=== PATIENT | female | born 2000 | race Two or more races ===

== ENCOUNTER 2021-11-16 12:48 | Emergency (ER) | payer MEDICAID, OTHER ==
[~2021-11-16] VITALS: Ht 165.1 cm; Wt 79.4 kg
[2021-11-16 14:48] VITALS: BP 186/94
[2021-11-16] MEDS ORDERED: LIDO2SOL23 MT (15:35)
[2021-11-16] MEDS ORDERED: AZIT500T66 PO (15:35)
== END 2021-11-16 15:50 | disposition home or self-care (01) ==
LOC: ER 12:48
DX: J03.90 Acute tonsillitis, unspecified (principal); J06.9 Acute upper respiratory infection, unspecified; Z86.2 Personal history of diseases of the blood and blood-forming organs and certain disorders involving the immune mechanism
CPT/HCPCS: 71046

== ENCOUNTER 2024-12-29 05:42 | Inpatient (IN) | payer MEDICAID ==
[~2024-12-29] VITALS: Ht 165.1 cm; Wt 83.5 kg
[2024-12-29] VITALS (10 sets, daily range): BP systolic 99–131; BP diastolic 55–83; PULSE 86–110; RESP 16–27; TEMP 97.8–98.2; O2SAT 96–99
[~2024-12-29 05:42] MED LIST: AZIT500T66 PO; LIDO2SOL26 MT
--- NOTE | 2024-12-29 06:14 | ED.PDOC ---
HPI Allergic reaction HPI Comments 24 year old female presents to the ED with a chief complaint of allergic reaction onset today around 04:30. Patient states she experienced a reaction 2 days ago, hives on scalp, neck and back, was seen at urgent care, was given medication that improved her symptoms. Patient woke up today noticed hives were back, lips and eyes were swollen as well as shortness of breath. Patient states she has not been exposed to new foods. PMHx anxiety, depression, anemia. Denies headache, dizziness, chest pain, blurry vision, nausea, vomiting, diarrhea, abdominal pain, fever, chills. No other symptoms or modifying factors present at this time. Chief Complaint: Allergic Reaction Time Seen by MD: 06:08 Primary Care Provider: [facility] Reviewed Notes: Medications, Allergies Allergies: Coded Allergies: Bee Venom (Verified Allergy, Unknown, 12/29/24) Benzoyl Peroxide (Verified Allergy, Unknown, 12/29/24) Honey (Verified Allergy, Unknown, 12/29/24) Home Meds Active Scripts Lidocaine HCl (Mouth-Throat) (Lidocaine HCl Viscous) 2 % Ashly, 2 % MT TID, #100 ML Prov:VIRAJ DAHL 11/16/21 Azithromycin (Azithromycin) 500 Mg Tab, 500 MG PO DAILY for 5 Days, #5 TAB Prov:VIRAJ DAHL 11/16/21 Information Source: Patient Mode of Arrival: Ambulatory Severity: Moderate Rash: Moderate SOB: Moderate Difficulty swallowing: None Pruritus: None Timing: Hours Duration: Since onset Prehospital treatment: None Location: Back, Eyes, Head, Lips, Neck Exposed to: Unknown Developed: Facial Swelling, Rash, Shortness of Breath Modyifying Factors: None Associated Sign and Symptoms: None Past Medical History PAST MEDICAL HISTORY: Anemia, Anxiety, Depression Surgical History: Denies all surgeries STATISTICIAN History: Denies all STATISTICIAN Hx Family History Family History: Reviewed,noncontributory to illness Social History Smoker: Non-Smoker Alcohol: Denies ETOH Use Drugs: Denies Drug Use Lives In: Home Constitutional: denies: chills, diaphoresis, fatigue, fever, malaise, sweats, weakness, others EENTM: denies: blurred vision, double vision, ear bleeding, ear discharge, ear drainage, ear pain, ear ringing, eye pain, eye redness, hearing loss, mouth pain, mouth swelling, nasal discharge, nose bleeding, nose congestion, nose pain, photophobia, tearing, throat pain, throat swelling, voice changes, others Respiratory: reports: shortness of breath; denies: cough, hemoptysis, orthopnea, SOB at rest, SOB with excertion, stridor, wheezing, others Cardiovascular: denies: chest pain, dizzy spells, diaphoresis, Dyspnea on exertion, edema, irregular heart beat, left arm pain, lightheadedness, palpitations, PND, syncope, others Gastrointestinal: denies: abdomen distended, abdominal pain, blood streaked bowels, constipated, diarrhea, dysphagia, difficulty swallowing, hematemesis, melena, nausea, poor appetite, poor fluid intake, rectal bleeding, rectal pain, vomiting, others Genitourinary: denies: abnormal vagina bleeding, burning, dyspareunia, dysuria, flank pain, frequency, hematuria, incontinence, pain, , vagina discharge, urgency, others Neurological: denies: dizziness, fainting, headache, left sided numbness, left sided weakness, numbness, paresthesia, pre-existing deficit, right sided numbness, right sided weakness, seizure, speech problems, tingling, tremors, weakness, others Musculoskeletal: denies: back pain, gout, joint pain, joint swelling, muscle pain, muscle stiffness, neck pain, others Integumetry: reports: rash; denies: bruises, change in color, change in hair/nails, dryness, laceration, lesions, lumps, wounds, others Allergic/Immunocompromised: denies: Difficulty Healing, Frequent Infections, Hives, Itching, others Hematologic/Lymphatic: denies: anemia, blood clots, easy bleeding, easy bruising, swollen glands, others Endocrine: denies: excessive hunger, excessive sweating, excessive thirst, excessive urination, flushing, intolerance to cold, intolerance to heat, unexplained weight gain, unexplained weight loss, others Psychiatric: denies: anxiety, bipolar disorder, depression, hopeless, panic disorder, schizophrenia, sleepless, suicidal, others All Other Systems: Reviewed and Negative Physical Exam General Appearance: No Apparent Distress, Normal HEENT: Normal ENT Inspection, Pharynx Normal, TMs Normal Neck: Full Range of Motion, Non-Tender, Normal, Normal Inspection Respiratory: Chest Non-Tender, Lungs Clear, No Accessory Muscle Use, No Respiratory Distress, Normal Breath Sounds Cardiovascular: No Edema, No JVD, No Murmur, No Gallop, Normal Peripheral Pulses, Regular Rate/Rhythm Breast Exam: Deferred Gastrointestinal: No Organomegaly, Non Tender, No Pulsatile Mass, Normal Bowel Sounds, Soft Genitalia: Deferred Pelvic: Deferred Rectal: Deferred Extremities: No calf tenderness, Normal capillary refill, Normal inspection, Normal range of motion, Non-tender, No pedal edema Musculoskeletal : Apperance: Normal Neurologic: Alert, baggage and mail agent II-XII nml as Tested, No Motor Deficits, Normal Affect, Normal Mood, No Sensory Deficits Cerebellar Function: Normal Reflexes: Normal Skin: Dry, Normal Color, Warm Lymphatic: No Adenopathy Was a procedure done? Was a procedure done?: No Differential diagnosis (all) Differential Diagnosis: Anaphylaxis, Angioedema, Drug Reaction, Urticaria X-Ray, Labs, Meds, VS Vital Signs Date Time Temp Pulse Resp B/P (MAP) Pulse Ox O2 Delivery O2 Flow Rate FiO2 12/29/24 06:30 97.7 86 27 118/62 (80) 99 97.7 12/29/24 06:20 86 27 99 Room Air* 0 21 12/29/24 06:08 94 18 98 Room Air* 0 21 12/29/24 06:08 98.0 94 18 133/91 (105) 98 98.0 12/29/24 05:58 98.0 94 18 133/91 (105) 98 98.0 12/29/24 05:58 18 98 Room Air* 0 21 Lab Test 12/29/24 08:38 Range/Units White Blood Count 15.1 H 4.4-10.8 10^3/uL Red Blood Count 4.99 4.0-5.20 10^6/uL Hemoglobin 11.8 L 12.2-16.2 g/dL Hematocrit 37.9 36.0-46.0 % Mean Corpuscular Volume 76.0 L 80.0-100.0 fL Mean Corpuscular Hemoglobin 23.7 L 28.0-32.0 pg Mean Corpuscular Hemoglobin Concent 31.2 L 32.0-36.0 g/dL Red Cell Distribution Width 14.9 H 11.8-14.3 % Platelet Count 351 140-450 10^3/uL Mean Platelet Volume 7.8 6.9-10.8 fL Neutrophils (%) (Auto) 78.9 37.0-80.0 % Lymphocytes (%) (Auto) 18.7 10.0-50.0 % Monocytes (%) (Auto) 2.2 0.0-12.0 % Eosinophils (%) (Auto) 0.1 0.0-7.0 % Basophils (%) (Auto) 0.1 0.0-2.0 % Neutrophils # (Auto) 11.9 H 1.6-8.6 10 ^3/uL Lymphocytes # (Auto) 2.8 0.4-5.4 10 ^3/uL Monocytes # (Auto) 0.3 0-1.3 10 ^3/uL Eosinophils # (Auto) 0 0-0.8 10 ^3/uL Basophils # (Auto) 0 0-0.2 10 ^3/uL Nucleated Red Blood Cells 0.0 % Sodium Level Pending Potassium Level Pending Chloride Level Pending Carbon Dioxide Level Pending Anion Gap Pending Blood Urea Nitrogen Pending Creatinine Pending Glomerular Filtration Rate Calc Pending BUN/Creatinine Ratio Pending Serum Glucose Pending Calcium Level Pending Current Medications Medications (Trade) Dose Ordered Sig/Antelmo Route Start Time Stop Time Status Last Admin Methylprednisolone Sodium Succinate (Solu Medrol) 125 mg ONCE ONCE IV 12/29/24 06:15 12/29/24 06:16 DC 12/29/24 06:17 Famotidine (Pepcid Injection) 20 mg ONCE ONCE IV 12/29/24 06:15 12/29/24 06:16 DC 12/29/24 06:18 Diphenhydramine HCl (Benadryl Injection) 50 mg ONCE ONCE IV 12/29/24 06:15 12/29/24 06:16 DC 12/29/24 06:17 Sodium Chloride 1,000 ml @ 1,000 mls/hr Q1H ONCE IV 12/29/24 06:15 12/29/24 07:14 DC 12/29/24 06:18 Time of 1ST Reevaluation: 06:38 Reevaluation 1ST: Unchanged Patient Education/Counseling: Diagnosis, Treatment, Prognosis Family Education/Counseling: No Family Present Departure 1 Departure Time of Disposition: 09:03 (Patient with urticaria and swelling concerning for allergic reaction versus angioedema. We will empirically cover patient with allergy cocktail as well as TXA for angioedema.) Impression: Primary Impression: Allergic reaction Qualified Codes: T78.40XA - Allergy, unspecified, initial encounter Disposition: ADMITTED INPATIENT Admit to: Med Surg Condition: Serious Critical Care Note Critical Care Time?: Yes Critical care comment: Allergic reaction Authorized and Performed by: Dariel Bradford MD Total critical care time: Approximately 34 minutes Due to a high probability of clinically significant, life threatening deterioration, the patient required my highest level of preparedness to intervene emergently and I personally spent this critical care time directly and personally managing the patient. This critical care time included obtaining a history; examining the patient; pulse oximetry; ordering and review of studies; arranging urgent treatment with development of a management plan; evaluation of patient's response to treatment; frequent reassessment; and, discussions with other providers. This critical care time was performed to assess and manage the high probability of imminent, life-threatening deterioration that could result in multi-organ failure. It was exclusive of separately billable procedures and treating other patients and teaching time. Please see my other sections and the rest of the note for further information on patient assessment and treatment. Stability Stability form required: No I personally scribed for DARIEL BRADFORD MD ([email or web address]) on 12/29/24 at 06:14. Electronically submitted by Kalyani Wilder ([email or web address]). DARIEL BRADFORD MD Dec 29, 2024 06:14
[2024-12-29] MEDS: diphenhdrAMINE HCL 50 MG/1 ML VL IV ONE ×2 (06:17→09:24)
[2024-12-29] MEDS: methylPREDNISolone SOD SUCC 125 MG/2 ML VL IV ONE (06:17)
[2024-12-29] MEDS: SODIUM CHLORIDE 0.9% 1,000 ML IV ONE (06:18)
[2024-12-29] MEDS: FAMOTIDINE (10MG/ML) 2ML VL IV ONE (06:18)
[2024-12-29 08:53] LABS: Basophils # (auto) 0 10 ^3/uL (0-0.2); Basophils % (auto) 0.1 % (0.0-2.0); Eosinophils # (auto) 0 10 ^3/uL (0-0.8); Eosinophils % (auto) 0.1 % (0.0-7.0); Hematocrit 37.9 % (36.0-46.0); Hemoglobin 11.8 g/dL (12.2-16.2); Lymphocytes # (auto) 2.8 10 ^3/uL (0.4-5.4); Lymphocytes % (auto) 18.7 % (10.0-50.0); Mean Corpuscular Hemoglobin 23.7 pg (28.0-32.0); Mean Corpuscular Hgb Conc. 31.2 g/dL (32.0-36.0); Monocytes # (auto) 0.3 10 ^3/uL (0-1.3); Monocytes % (auto) 2.2 % (0.0-12.0); Neutrophils # (auto) 11.9 10 ^3/uL (1.6-8.6); Neutrophils % (auto) 78.9 % (37.0-80.0); Platelet Count (auto) 351 10^3/uL (140-450); Red Blood Cells 4.99 10^6/uL (4.0-5.20); Red Cell Distribution Width 14.9 % (11.8-14.3); White Blood Cell 15.1 10^3/uL (4.4-10.8)
[2024-12-29 09:02] LABS: Anion Gap 8 (5-15); Calcium 9.2 mg/dL (8.7-10.4); Carbon Dioxide 23 mmol/L (20-31); Potassium 4.2 mmol/L (3.5-5.1); Sodium 141 mmol/L (136-145)
[2024-12-29 09:05] LABS: Chloride 110 mmol/L (98-107)
[2024-12-29 09:08] LABS: BUN/Creatinine Ratio 18.3 (10.0-20.0); Blood Urea Nitrogen 11 mg/dL (9-23); Glucose 100 mg/dL (74-106)
[2024-12-29] MEDS: TRANEXAMIC ACID 1,000 MG in SODIUM CHL 0.9% 100 ML IV ONE (09:55)
[2024-12-29] MEDS ORDERED: ONDANSETRON HCL 4 MG/2 ML VIAL IV PRN (11:45)
[2024-12-29] MEDS ORDERED: diphenhdrAMINE HCL 50 MG/1 ML VL IV PRN (11:45)
[2024-12-29] MEDS ORDERED: ALBUTEROL SULF 2.5 MG/0.5ML(0.5%) NEB SOLN NEB PRN (11:45)
[2024-12-29] MEDS ORDERED: IPRATROPIUM BROM 0.5 MG/2.5ML INH SOL NEB PRN (11:45)
--- NOTE | 2024-12-29 11:56 | DVHHP2 ---
History of Present Illness Reason for Visit: Allergic reaction History of Present Illness Lo Giraldo is a 24-year-old female with past medical history of anemia, anxiety, and depression who presents to the ED with unknown allergic reaction. Patient reports that she had eaten a rice and salas tostada on Thursday before having the reaction. Patient also states that she was using a new lotion with vitamin-C that she purchased online from [employer] that was a Faroese brand called Kingmaker. Patient reports that she was seen in the urgent care here on Thursday was given an antihistamine injection stated that it helped calm the reaction however today she woke up this morning with left eye edema, lip swelling and tingling, hives, rashes to her neck and upper back. Patient also reports that she has some tongue swelling with shortness of breath. Patient denies any chest pain, fever, chills, lightheadedness, weakness, dizziness, abdominal pain, nausea, vomiting, or diarrhea. Heme/Onc: Anemia NOS Psych: Anxiety, Depression Past Surgical History: None Family History: DM, Hyperlipidemia, Hypertension, Other (Mom with hypertension, and hyperlipidemia, diabetes, and dad with hypertension) Smoke: No ALCOHOL: none Drugs: None Lives: with Family Domestic Violence: Neg Review of Systems Respiratory: Shortness of breath Allergies: Coded Allergies: Bee Venom (Verified Allergy, Unknown, 12/29/24) Benzoyl Peroxide (Verified Allergy, Unknown, 12/29/24) Honey (Verified Allergy, Unknown, 12/29/24) Exam Vital Signs Vital Signs Date Time Temp Pulse Resp B/P (MAP) Pulse Ox O2 Delivery O2 Flow Rate FiO2 12/29/24 08:00 95 16 97 Room Air* 0 21 12/29/24 08:00 97.9 120/67 (84) 97.9 General Appearance: Alert, Oriented X3, Cooperative, No acute distress HEENT: Atraumatic, PERRLA, EOMI, Mucous membr. moist/pink Respiratory: Clear to auscultation, Normal air movement Cardiovascular: Regular rate, Normal S1, Normal S2, No murmurs Abdominal: Normal bowel sounds, Soft, No tenderness, No hepatospenomegaly, No masses Extremities: No clubbing, No cyanosis, No edema, Normal pulses, No tenderness/swelling Skin: No breakdown, No significant lesion Neuro: Normal speech, Strength at 5/5 X4 ext, Normal tone, Sensation intact Psych/Mental Status: Mental status NL, Mood NL Labs/Xrays Labs Test 12/29/24 08:38 Range/Units White Blood Count 15.1 H 4.4-10.8 10^3/uL Red Blood Count 4.99 4.0-5.20 10^6/uL Hemoglobin 11.8 L 12.2-16.2 g/dL Hematocrit 37.9 36.0-46.0 % Mean Corpuscular Volume 76.0 L 80.0-100.0 fL Mean Corpuscular Hemoglobin 23.7 L 28.0-32.0 pg Mean Corpuscular Hemoglobin Concent 31.2 L 32.0-36.0 g/dL Red Cell Distribution Width 14.9 H 11.8-14.3 % Platelet Count 351 140-450 10^3/uL Mean Platelet Volume 7.8 6.9-10.8 fL Neutrophils (%) (Auto) 78.9 37.0-80.0 % Lymphocytes (%) (Auto) 18.7 10.0-50.0 % Monocytes (%) (Auto) 2.2 0.0-12.0 % Eosinophils (%) (Auto) 0.1 0.0-7.0 % Basophils (%) (Auto) 0.1 0.0-2.0 % Neutrophils # (Auto) 11.9 H 1.6-8.6 10 ^3/uL Lymphocytes # (Auto) 2.8 0.4-5.4 10 ^3/uL Monocytes # (Auto) 0.3 0-1.3 10 ^3/uL Eosinophils # (Auto) 0 0-0.8 10 ^3/uL Basophils # (Auto) 0 0-0.2 10 ^3/uL Nucleated Red Blood Cells 0.0 % Sodium Level 141 136-145 mmol/L Potassium Level 4.2 3.5-5.1 mmol/L Chloride Level 110 H 98-107 mmol/L Carbon Dioxide Level 23 20-31 mmol/L Anion Gap 8 5-15 Blood Urea Nitrogen 11 9-23 mg/dL Creatinine 0.60 0.550-1.02 mg/dL Glomerular Filtration Rate Calc 128 >90 mL/min BUN/Creatinine Ratio 18.3 10.0-20.0 Serum Glucose 100 74-106 mg/dL Calcium Level 9.2 8.7-10.4 mg/dL CHEST RADIOGRAPH Indication: Anaphylactic reaction Technique: Single frontal view of the chest was obtained COMPARISON: None FINDINGS: Lines and Tubes: None Lungs: Clear Pleura: No effusion. No pneumothorax. Cardiomediastinal contours: Unremarkable Bones: Unremarkable IMPRESSION: No acute disease. Assessment/Plan Assessment/Plan Assessment Anaphylaxis Leukocytosis Obesity History of anemia History of anxiety History of depression Plan Admit to med surge IV antibiotics-ceftriaxone PPIs Antihistamines Duo nebs IV steroids Chest x-ray ordered NS 1 L given ED Discussed plan of care with patient and nurse DVT prophylaxis-not indicated patient ambulating PUD prophylaxis-famotidine Counseled patient on lifestyle modifications, diet, and exercise Plan discussed with: Patient My Orders Orders - MOHSEN ZULETA Procedure Category Date Status Time Ceftriaxone Ivpb PHA 12/29/24 Transmitted Rocephin 11:45 Famotidine Injection PHA 12/29/24 Transmitted (Pepcid Injection) 11:45 Diphenhdramine PHA 12/29/24 Transmitted Injection (Benadryl 11:45 Albuterol Medneb PHA 12/29/24 Transmitted (Ventolin Medneb) 11:45 Ipratropium Medneb PHA 12/29/24 Transmitted (Atrovent Medneb) 11:45 Methylprednisolone PHA 12/29/24 Transmitted Sod Succ (Solu Medrol 14:00 Admit ADMIT 12/29/24 Transmitted 11:45 Allergies BALTA 12/29/24 In Process 11:45 Code Status CODE 12/29/24 Transmitted 11:45 Ondansetron Hcl PHA 12/29/24 Transmitted (Zofran) 11:45 Complete Blood Count LAB 12/30/24 Verified 04:00 Comprehensive LAB 12/30/24 Verified Metabolic Panel 04:00 Acetaminophen Tablet PHA 12/29/24 Transmitted (Tylenol Tablet) 11:45 Regular Diet DIET 12/29/24 Transmitted Lunch Chest Xray 1 View XY 12/29/24 Verified 11:48 Date of Service: Dec 29, 2024 Billing Provider: MOHSEN ZULETA Common Visit Codes: 90229-FNCUGIF INP/OBS CARE (HIGH) MOHSEN ZULETA Dec 29, 2024 11:56
--- NOTE | 2024-12-29 12:16 | DVH ---
CHEST RADIOGRAPH Indication: Anaphylactic reaction Technique: Single frontal view of the chest was obtained COMPARISON: None FINDINGS: Lines and Tubes: None Lungs: Clear Pleura: No effusion. No pneumothorax. Cardiomediastinal contours: Unremarkable Bones: Unremarkable IMPRESSION: No acute disease.
[2024-12-29] MEDS ORDERED: CETI10CA PO (12:31)
[2024-12-29] MEDS: cefTRIAXone 1GM/50ML D5W 50 ML IV SCH (15:41)
[2024-12-29] MEDS: FAMOTIDINE (10MG/ML) 2ML VL IV SCH (15:41)
[2024-12-29] MEDS: methylPREDNISolone SOD SUCC 125 MG/2 ML VL IV SCH (15:41)
[2024-12-29] MEDS: ACETAMINOPHEN 325 MG TAB PO PRN (19:53)
[2024-12-30] VITALS (7 sets, daily range): BP systolic 113–115; BP diastolic 58–68; PULSE 78–92; RESP 16; TEMP 97.7–98.2; O2SAT 96–99
[2024-12-30 06:55] LABS: Basophils # (auto) 0 10 ^3/uL (0-0.2); Eosinophils # (auto) 0 10 ^3/uL (0-0.8); Hemoglobin 11.3 g/dL (12.2-16.2)
[2024-12-30 06:57] LABS: Basophils % (auto) 0.2 % (0.0-2.0); Hematocrit 34.5 % (36.0-46.0); Lymphocytes # (auto) 2.6 10 ^3/uL (0.4-5.4); Lymphocytes % (auto) 14.7 % (10.0-50.0); Mean Corpuscular Hemoglobin 24.4 pg (28.0-32.0); Mean Corpuscular Hgb Conc. 32.8 g/dL (32.0-36.0); Mean Corpuscular Volume 74.3 fL (80.0-100.0); Monocytes # (auto) 0.4 10 ^3/uL (0-1.3); Monocytes % (auto) 2.2 % (0.0-12.0); Neutrophils # (auto) 14.6 10 ^3/uL (1.6-8.6); Neutrophils % (auto) 82.9 % (37.0-80.0); Platelet Count (auto) 382 10^3/uL (140-450); Red Blood Cells 4.65 10^6/uL (4.0-5.20); Red Cell Distribution Width 14.4 % (11.8-14.3); White Blood Cell 17.6 10^3/uL (4.4-10.8)
[2024-12-30 07:00] LABS: Albumin 4.6 g/dL (3.2-4.8); Alkaline Phosphatase 94 U/L (46-116); Anion Gap 11 (5-15); BUN/Creatinine Ratio 22.2 (10.0-20.0); Blood Urea Nitrogen 12 mg/dL (9-23); Calcium 9.5 mg/dL (8.7-10.4); Carbon Dioxide 20 mmol/L (20-31); Potassium 3.8 mmol/L (3.5-5.1); Sodium 140 mmol/L (136-145); Total Protein 7.1 g/dL (5.7-8.2)
[2024-12-30 07:03] LABS: Alanine Aminotransferase 44 U/L (7-40); Aspartate Aminotransferase 9 U/L (13-40); Bilirubin, Total 0.3 mg/dL (0.2-1.0); Chloride 109 mmol/L (98-107); Glucose 126 mg/dL (74-106)
[2024-12-30] MEDS ORDERED: PRED20TA2 PO (15:33)
[2024-12-30] MEDS ORDERED: DIPH25CA66 PO (15:33)
--- NOTE | 2024-12-30 15:38 | DVHDS2 ---
Discharge Summary Date of Admission Dec 29, 2024 at 11:45 Date of Discharge: Dec 30, 2024 Admitting Diagnosis Anaphylactic reaction Labs/Diagnostic Data: Laboratory Results Test 12/30/24 05:06 White Blood Count 17.6 10^3/uL (4.4-10.8) Red Blood Count 4.65 10^6/uL (4.0-5.20) Hemoglobin 11.3 g/dL (12.2-16.2) Hematocrit 34.5 % (36.0-46.0) Mean Corpuscular Volume 74.3 fL (80.0-100.0) Mean Corpuscular Hemoglobin 24.4 pg (28.0-32.0) Mean Corpuscular Hemoglobin Concent 32.8 g/dL (32.0-36.0) Red Cell Distribution Width 14.4 % (11.8-14.3) Platelet Count 382 10^3/uL (140-450) Mean Platelet Volume 8.1 fL (6.9-10.8) Neutrophils (%) (Auto) 82.9 % (37.0-80.0) Lymphocytes (%) (Auto) 14.7 % (10.0-50.0) Monocytes (%) (Auto) 2.2 % (0.0-12.0) Eosinophils (%) (Auto) 0.0 % (0.0-7.0) Basophils (%) (Auto) 0.2 % (0.0-2.0) Neutrophils # (Auto) 14.6 10 ^3/uL (1.6-8.6) Lymphocytes # (Auto) 2.6 10 ^3/uL (0.4-5.4) Monocytes # (Auto) 0.4 10 ^3/uL (0-1.3) Eosinophils # (Auto) 0 10 ^3/uL (0-0.8) Basophils # (Auto) 0 10 ^3/uL (0-0.2) Nucleated Red Blood Cells 0.0 % Sodium Level 140 mmol/L (136-145) Potassium Level 3.8 mmol/L (3.5-5.1) Chloride Level 109 mmol/L (98-107) Carbon Dioxide Level 20 mmol/L (20-31) Anion Gap 11 (5-15) Blood Urea Nitrogen 12 mg/dL (9-23) Creatinine 0.54 mg/dL (0.550-1.02) Glomerular Filtration Rate Calc 132 mL/min (>90) BUN/Creatinine Ratio 22.2 (10.0-20.0) Serum Glucose 126 mg/dL (74-106) Calcium Level 9.5 mg/dL (8.7-10.4) Total Bilirubin 0.3 mg/dL (0.2-1.0) Aspartate Amino Transferase (AST) 9 U/L (13-40) Alanine Aminotransferase (ALT) 44 U/L (7-40) Alkaline Phosphatase 94 U/L (46-116) Total Protein 7.1 g/dL (5.7-8.2) Albumin 4.6 g/dL (3.2-4.8) Other Laboratory Tests 12/30/24 05:06 Brief Hx & Hospital Course: History of Present Illness Lo Giraldo is a 24-year-old female with past medical history of anemia, anxiety, and depression who presents to the ED with unknown allergic reaction. Patient reports that she had eaten a rice and salas tostada on Thursday before having the reaction. Patient also states that she was using a new lotion with vitamin-C that she purchased online from [employer] that was a Romansh brand called [employer]. Patient reports that she was seen in the urgent care here on Thursday was given an antihistamine injection stated that it helped calm the reaction however today she woke up this morning with left eye edema, lip swelling and tingling, hives, rashes to her neck and upper back. Patient also reports that she has some tongue swelling with shortness of breath. Course of hospitalization: Patient was symptoms have resolved. She no longer has wheezing, facial edema, or hives to her back shoulders and arms. Initial allergic reaction started Thursday, 72 hours ago with the patient having treatment from urgent care as well as our emergency room and in hospitalization today. Patient was requesting to be discharged home. Given that she was asymptomatic, patient can be discharged home with prescription of prednisone and Benadryl. Instructed follow up with her PCP in 1-2 weeks. In addition the patient states that her reaction may be due to this lotion that she began using prior to her symptoms. Patient will abstain from that specific lotion. Physical examination General: Alert and Oriented x3. No acute distress. Well-nourished. Obese Eyes: EOMI. Anicteric. HENT: Moist mucous membranes. Lungs: Clear to auscultation bilaterally. No accessory muscle use. Cardiovascular: Regular rate and rhythm. No murmur. No JVD. Abdomen: Soft, non-tender and non-distended. No palpable masses. Extremities: No edema. Non-tender. Skin: No rashes or lesions. Warm. Neurologic: No focal neurological deficits. CN II-XII grossly intact, but not individually tested. Psychiatric: Cooperative. Appropriate mood and affect. Total time spent with patient discussing and formulating plan of care: 35 minutes. This medical document was created using an electronic medical record system with [employer]opogoation system. Although this document has been carefully reviewed, there may still be some phonetic and typographical errors. These areas are purely typographical due to imperfections of the software programs, and do not reflect any compromise in the patient's medical care. Condition at Discharge: Fair Final Diagnosis/Problems List Anaphylactic reaction Secondary diagnosis: Sirs secondary to anaphylaxis Obesity Discharge Disposition: Home Discharge Instruct/Medications Diet: Regular Activity: No Restrictions, As Tolerated Follow Up/Referral: Follow up with PCP in 1-2 weeks Medications: Prednisone 20 mg p.o. tomorrow, may take one tablet for an additional two days if patient has reoccurrence of hives Benadryl 25 mg p.o. b.i.d. as needed for hives 36 Discharge Statement: "Patient was advised to return to the ER or call 911 if any headaches, dizziness, shortness of breath, chest pain, abdominal pain, bleeding, fevers, or worsening of medical condition. Patient was counseled about treatment plan, medications, possible side effects, patientverbalized understanding. All questions were answered to the best of my ability. This discharge took greater then 30 minutes in planning, reviewing documentation, counseling the patient, and discussing with other team members." ASSESSMENT ASSESSMENT Assessment Anaphylactic reaction Date of Service: Dec 30, 2024 Billing Provider: JAMMIE MIRANDA NP Common Visit Codes: 43315-PGM/OBS DISCH DAY >30min JAMMIE MIRANDA NP Dec 30, 2024 15:37
== END 2024-12-30 17:51 | disposition home or self-care (01) | DRG 811 ==
LOC: ER 05:42 → OVERFLOW 11:45 → EAST 11:48
PROVIDERS: ADMIT Nurse Practitioner Acute Care; ATTEND Nurse Practitioner Acute Care
DX: T78.2XXA Anaphylactic shock, unspecified, initial encounter (principal); R65.10 Systemic inflammatory response syndrome (SIRS) of non-infectious origin without acute organ dysfunction; E66.9 Obesity, unspecified; Z91.030 Bee allergy status; Z91.018 Allergy to other foods; Z68.30 Body mass index [BMI] 30.0-30.9, adult; Z88.8 Allergy status to other drugs, medicaments and biological substances; Z79.2 Long term (current) use of antibiotics; Z79.899 Other long term (current) drug therapy; Z83.3 Family history of diabetes mellitus; Z82.49 Family history of ischemic heart disease and other diseases of the circulatory system; Y84.8 Other medical procedures as the cause of abnormal reaction of the patient, or of later complication, without mention of misadventure at the time of the procedure; Y92.89 Other specified places as the place of occurrence of the external cause
CPT/HCPCS: 36415; 71045; 80048; 80053; 85025; 99291; G0378; J3490

== ENCOUNTER 2025-01-01 00:28 | Emergency (ER) | payer MEDICAID ==
[~2025-01-01] VITALS: Ht 165.1 cm; Wt 83.0 kg
[~2025-01-01 00:28] MED LIST changes: +CETI10CA PO; +DIPH25CA66 PO; +PRED20TA2 PO
[2025-01-01] MEDS: IPRATROPIUM BROM 0.5 MG/2.5ML INH SOL NEB ONE (01:20)
[2025-01-01] MEDS: ALBUTEROL SULF 2.5 MG/0.5ML(0.5%) NEB SOLN NEB ONE (01:21)
[2025-01-01] MEDS: DexAMETHasone SOD PHOS 10MG/1ML VIAL INJ IM ONE (01:48)
[2025-01-01 01:51] VITALS: BP 120/80; TEMP 98.1
[2025-01-01] MEDS ORDERED: HYDR-3682 PO (02:02)
--- NOTE | 2025-01-01 02:02 | ED.PDOC ---
HPI Allergic reaction HPI Comments This patient is a morbidly obese 24-year-old female who arrives to the ED today for re-evaluation of allergic rash concerns. Patient was seen this facility a few days ago and initially admitted for concerns of angioedema. Patient was discharged with medication, but returns today stating she has some rashing juan rns and some mild shortness of breath. Patient was unremarkable at time of evaluation with respect to her rash and vital signs were stable on arrival. Patient did not display any signs of respiratory distress and there were no accessory muscle use noted at time of evaluation. Chief Complaint: Allergic Reaction Time Seen by MD: 01:00 Primary Care Provider: [facility] Reviewed Notes: Nurses Notes Allergies: Coded Allergies: Bee Venom (Verified Allergy, Unknown, 12/29/24) Benzoyl Peroxide (Verified Allergy, Unknown, 12/29/24) Honey (Verified Allergy, Unknown, 12/29/24) Home Meds Active Scripts Diphenhydramine Hcl (Benadryl Allergy) 25 Mg Cap, 1 CAP PO BIDP PRN for 5 Days, #30 CAP 1 Refill Prov:JAMMIE MIRANDA BUNDLING MACHINE OPERATOR 12/30/24 Prednisone (Prednisone) 20 Mg Tab, 20 MG PO ONCE for 1 Day, #3 MG Prov:JAMMIE MIRANDA BUNDLING MACHINE OPERATOR 12/30/24 Lidocaine HCl (Mouth-Throat) (Lidocaine HCl Viscous) 2 % Ashly, 2 % MT TID, #100 ML Prov:VIRAJ DAHL 11/16/21 Azithromycin (Azithromycin) 500 Mg Tab, 500 MG PO DAILY for 5 Days, #5 TAB Prov:VIRAJ DAHL 11/16/21 Reported Medications Cetirizine Hcl (Zyrtec Allergy) 10 Mg Cap, 10 MG PO DAILY, CAP 12/29/24 Information Source: Patient Mode of Arrival: Ambulatory Severity: Mild Rash: Mild SOB: Mild Difficulty swallowing: None Pruritus: Mild Timing: Hours Duration: Since onset Prehospital treatment: Treatment Exposed to: Unknown History of: Prior Similar Episodes Past Medical History PAST MEDICAL HISTORY: Anemia, Anxiety, Depression Past Medical History (Other): Recurrent allergic reaction Surgical History: Denies all surgeries WAREHOUSE OPERATIONS ASSOCIATE History: Denies all WAREHOUSE OPERATIONS ASSOCIATE Hx Family History Family History: Reviewed,noncontributory to illness Social History Smoker: Non-Smoker Alcohol: Denies ETOH Use Drugs: Denies Drug Use Lives In: Home Constitutional: denies: chills, diaphoresis, fatigue, fever, malaise, sweats, weakness, others EENTM: denies: blurred vision, double vision, ear bleeding, ear discharge, ear drainage, ear pain, ear ringing, eye pain, eye redness, hearing loss, mouth pain, mouth swelling, nasal discharge, nose bleeding, nose congestion, nose pain, photophobia, tearing, throat pain, throat swelling, voice changes, others Respiratory: reports: SOB at rest; denies: cough, hemoptysis, orthopnea, shortness of breath, SOB with excertion, stridor, wheezing, others Cardiovascular: denies: chest pain, dizzy spells, diaphoresis, Dyspnea on exertion, edema, irregular heart beat, left arm pain, lightheadedness, palpitations, PND, syncope, others Gastrointestinal: denies: abdomen distended, abdominal pain, blood streaked bowels, constipated, diarrhea, dysphagia, difficulty swallowing, hematemesis, melena, nausea, poor appetite, poor fluid intake, rectal bleeding, rectal pain, vomiting, others Genitourinary: denies: abnormal vagina bleeding, burning, dyspareunia, dysuria, flank pain, frequency, hematuria, incontinence, pain, , vagina discharge, urgency, others Neurological: denies: dizziness, fainting, headache, left sided numbness, left sided weakness, numbness, paresthesia, pre-existing deficit, right sided numbness, right sided weakness, seizure, speech problems, tingling, tremors, weakness, others Musculoskeletal: denies: back pain, gout, joint pain, joint swelling, muscle pain, muscle stiffness, neck pain, others Integumetry: reports: rash; denies: bruises, change in color, change in hair/nails, dryness, laceration, lesions, lumps, wounds, others Allergic/Immunocompromised: denies: Difficulty Healing, Frequent Infections, Hives, Itching, others Hematologic/Lymphatic: denies: anemia, blood clots, easy bleeding, easy bruising, swollen glands, others Endocrine: denies: excessive hunger, excessive sweating, excessive thirst, excessive urination, flushing, intolerance to cold, intolerance to heat, unexplained weight gain, unexplained weight loss, others Psychiatric: denies: anxiety, bipolar disorder, depression, hopeless, panic disorder, schizophrenia, sleepless, suicidal, others Physical Exam General Appearance: Moderate Distress ([id number] distress due to pruritus and mild shortness a breath concerns.), Normal HEENT: Normal ENT Inspection, Pharynx Normal, TMs Normal Neck: Full Range of Motion, Non-Tender, Normal, Normal Inspection Respiratory: Chest Non-Tender, Lungs Clear, No Accessory Muscle Use, No Respiratory Distress, Normal Breath Sounds, Other (Unremarkable auscultation bilateral lung manning. No accessory muscle use noted.) Cardiovascular: No Edema, No JVD, No Murmur, No Gallop, Normal Peripheral Pulses, Regular Rate/Rhythm Breast Exam: Deferred Gastrointestinal: No Organomegaly, Non Tender, No Pulsatile Mass, Normal Bowel Sounds, Soft Genitalia: Deferred Pelvic: Deferred Rectal: Deferred Extremities: No calf tenderness, Normal capillary refill, Normal inspection, Normal range of motion, Non-tender, No pedal edema Neurologic: Alert, No Motor Deficits, Normal Affect, Normal Mood, No Sensory Deficits Cerebellar Function: Normal Reflexes: Normal Skin: Other (Integument evaluation was unremarkable for any rash formation. I do not see any signs of eruption. Patient was complaining of pruritus, but t here was some redness and was related to the patient's itching only.) Lymphatic: No Adenopathy Was a procedure done? Was a procedure done?: No Differential diagnosis (all) Differential Diagnosis: Anaphylaxis, Angioedema, Contact Dermatitis, Urticaria X-Ray, Labs, Meds, VS Vital Signs Date Time Temp Pulse Resp B/P (MAP) Pulse Ox O2 Delivery O2 Flow Rate FiO2 01/01/25 01:51 85 18 98 Room Air 01/01/25 01:51 98.1 85 17 120/80 (93) 98 98.1 01/01/25 01:17 19 100 Room Air* 0 21 01/01/25 00:45 98 Room Air* 0 21 01/01/25 00:45 97.9 102 18 129/97 (108) 98 97.9 Current Medications Medications (Trade) Dose Ordered Sig/Antelmo Route Start Time Stop Time Status Last Admin Dexamethasone Sodium Phosphate (Decadron Injection) 10 mg ONCE ONCE IM 01/01/25 01:15 01/01/25 01:16 DC 01/01/25 01:48 Albuterol (Ventolin Medneb) 2.5 mg ONCE ONCE NEB 01/01/25 01:15 01/01/25 01:16 DC 01/01/25 01:21 Ipratropium [place] (Atrovent Medneb) 0.5 mg ONCE ONCE NEB 01/01/25 01:15 01/01/25 01:16 DC 01/01/25 01:20 X-Ray, Labs, Meds, VS Comment Patient responded well to medication dispensed. Advised patient that it appears that she has an environmental allergen that is affecting her as her symptoms continue when she gets home. Advise the patient that she would benefit from a outbound sales specialist appointment as I am concerned she will continued to have pruritus and skin concerns until the offending agent can be isolated. 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 Patient will need to follow up with the primary care provider for discussions related to her allergic response. Additionally, advised patient she may to continue to investigate the cause of her allergic responses that may be environmental and related to spring time budding and flowering. e-Prescriptions Hydroxyzine Hcl (Hydroxyzine Hcl) 25 Mg Tab 1 TAB PO TID, #20 TAB Prov: JARED LEAL PAC 01/01/25 Discharged With: Self, Friend Critical Care Note Critical Care Time?: No Stability Stability form required: No Heart Score Heart Score: Heart Score Response (Comments) Value History N/A 0 EKG N/A 0 Age N/A 0 Risk Factors N/A 0 Troponin N/A 0 Total 0 JARED LEAL PAC Jan 01, 2025 02:02
[2025-01-01 02:10] VITALS: PULSE 88; RESP 16; O2SAT 100
== END 2025-01-01 02:09 | disposition home or self-care (01) ==
LOC: ER 00:28
DX: T78.49XA Other allergy, initial encounter (principal); F32.A Depression, unspecified; F41.9 Anxiety disorder, unspecified; D64.9 Anemia, unspecified; Z91.030 Bee allergy status; Z88.8 Allergy status to other drugs, medicaments and biological substances; Z79.899 Other long term (current) drug therapy; X58.XXXA Exposure to other specified factors, initial encounter
CPT/HCPCS: 94640; 96372; 99283; J1100